=== PATIENT | male | born 1960 | race Caucasian/White ===

== ENCOUNTER 2018-01-17 08:15 | Day surgery (SDC) | payer OTHER ==
[~2018-01-17 08:15] MED LIST: SOD CHLORIDE 0.9% 1,000 ML IV
[2018-01-17] MEDS ORDERED: FENTAnyl 50 MCG/ML VIAL (11:18)
[2018-01-17] MEDS ORDERED: PROPOFOL 20 ML (11:18)
[2018-01-17] MEDS ORDERED: CEFAZOLIN 1 GM INJ (11:18)
[2018-01-17] MEDS ORDERED: MIDAZOLAM 1 MG/ML 2 ML INJ (11:18)
[2018-01-17] MEDS ORDERED: ROCURONIUM 50 MG INJ (11:18)
[2018-01-17] MEDS ORDERED: KETOROLAC 30 MG INJ (11:19)
[2018-01-17] MEDS ORDERED: METOCLOPRAMIDE 10 MG INJ (11:19)
[2018-01-17] MEDS ORDERED: DEXAMETHASONE 4 MG/ML 1 ML INJ (11:19)
[2018-01-17] MEDS ORDERED: SUGAMMADEX SODIUM 200 MG/2 ML VIAL IV (11:19)
[2018-01-17] MEDS ORDERED: ONDANSETRON 4 MG INJ (11:19)
[2018-01-17] MEDS ORDERED: ROPIVACAINE 0.2% 20 ML VIAL (11:19)
[2018-01-17] MEDS: POLYMYXIN/BACITRACIN 1L IRRIG (11:37)
[2018-01-17] MEDS ORDERED: OXYCODONE/ACETAMINOPHEN (5/325) TAB PO ×2 (12:00)
[2018-01-17] MEDS ORDERED: DIPHENHYDRAMINE 50 MG INJ IV (12:00)
[2018-01-17] MEDS ORDERED: HYDROmorphONE (0.2 MG/ML) 10ML SYG IV ×3 (12:00)
[2018-01-17] MEDS ORDERED: FENTAnyl 50 MCG/ML VIAL IV ×3 (12:00)
[2018-01-17] MEDS ORDERED: ONDANSETRON 4 MG INJ IV (12:00)
[2018-01-17] MEDS ORDERED: LABETALOL HCL 20MG INJ IV (12:00)
[2018-01-17] MEDS ORDERED: EPHEDrine SULFATE 50 MG/5 ML SYG IV (12:00)
[2018-01-17] MEDS ORDERED: MEPERIDINE 25 MG INJ IV (12:00)
[2018-01-17] MEDS ORDERED: METOCLOPRAMIDE 10 MG INJ IV (12:00)
[2018-01-17] MEDS: BUPIVACAINE 0.25% (MPF) 30 ML INJ (12:03)
[2018-01-17] MEDS ORDERED: HYDROCODONE/APAP (5/325) TAB PO (12:30)
== END 2018-01-17 14:07 | disposition home or self-care (01) ==
LOC: SDS 08:15
DX: K40.30 Unilateral inguinal hernia, with obstruction, without gangrene, not specified as recurrent (principal)
CPT/HCPCS: 49507; 71045; 93005